=== PATIENT | male | born 1995 | race American Indian/Alaskan Native ===

== ENCOUNTER 2016-12-23 04:15 | Emergency (ER) | payer SELFPAY ==
[2016-12-23 05:11] VITALS: BP 133/87
[2016-12-23] MEDS ORDERED: NORCO 5/325 PO ONE (06:24)
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
== END 2016-12-23 07:03 | disposition home or self-care (01) ==
LOC: ED 04:15
DX: M54.6 Pain in thoracic spine (principal)
CPT/HCPCS: 99282